=== PATIENT | female | born 1985 | race Caucasian/White ===

== ENCOUNTER 2019-01-02 20:29 | Emergency (ER) | payer SELFPAY ==
[2019-01-02] MEDS ORDERED: MORPHINE SULFATE 4 MG/ML, 1ML ONE (21:26)
[2019-01-02] MEDS ORDERED: ONDANSETRON 2MG/ML, 2ML ONE (21:26)
== END 2019-01-02 21:09 ==
LOC: ED 21:00
DX: R10.9 Unspecified abdominal pain (principal); Z53.21 Procedure and treatment not carried out due to patient leaving prior to being seen by health care provider